=== PATIENT | male | born 1995 | race Two or more races ===

== ENCOUNTER 2019-11-23 09:59 | Emergency (ER) | payer OTHER ==
[~2019-11-23] VITALS: Ht 180.3 cm; Wt 131.2 kg
--- NOTE | 2019-11-23 10:45 | NUR ---
PT GIVEN SUPPLIES TO OBTAIN A STOOL SAMPLE
--- NOTE | 2019-11-23 10:46 | NUR ---
US AT BEDSIDE
[2019-11-23 11:26] LABS: BASOPHILS # (AUTO) 0.02 x10^3/uL (0-0.1); BASOPHILS % (AUTO) 0 % (0-1); EOSINOPHILS # (AUTO) 0.02 x10^3/uL (0-0.4); EOSINOPHILS % (AUTO) 0 % (1-7); LYMPHOCYTES # (AUTO) 2.11 x10^3/uL (1-3.4); LYMPHOCYTES % (AUTO) 19 % (22-44); MD NO; MEAN CORPUSCULAR HEMOGLOBIN 28.1 pg (27.5-34.5); MEAN CORPUSCULAR HGB CONC 33.6 g/dL (33.2-36.2); MEAN CORPUSCULAR VOLUME 83.6 fL (81-97); MEAN PLATELET VOLUME 7.6 fL (7.4-10.4); MONOCYTES # (AUTO) 0.82 x10^3/uL (0.2-0.8); MONOCYTES % (AUTO) 7 % (2-9); NEUTROPHILS % (AUTO) 74 % (42-75); PLATELET COUNT 349 x10^3/uL (130-400); RED BLOOD COUNT 5.45 x10^6/uL (4.38-5.82); RED CELL DISTRIBUTION WIDTH 12.3 % (9.4-14.8)
[2019-11-23] MEDS ORDERED: PANTOPRAZOLE 40 MG IV ONE (11:32)
[2019-11-23] MEDS ORDERED: KETOROLAC 30 MG/1 ML ONE (11:32)
[2019-11-23] MEDS ORDERED: ONDANSETRON 2MG/ML, 2ML ONE (11:32)
--- NOTE | 2019-11-23 11:52 | NUR ---
pt resting in [facility], iv established and pt medicated per nov. pt placed on monitor. call light within reach.
[2019-11-23] MEDS ORDERED: PANTOPRAZOLE 40 MG IV IVPush ONE (12:00)
[2019-11-23] MEDS ORDERED: SODIUM CHLORIDE 0.9% 1,000ML IVBOLUS ONE (12:00)
[2019-11-23] MEDS ORDERED: KETOROLAC 30 MG/1 ML IVPush ONE (12:00)
[2019-11-23] MEDS ORDERED: ONDANSETRON 2MG/ML, 2ML IVPush ONE (12:00)
[2019-11-23 12:13] LABS: ALBUMIN 3.6 g/dL (3.4-5.0); ANION GAP 9 mmol/L (5-15); CALCIUM 8.9 mg/dL (8.5-10.1); CHLORIDE 105 mmol/L (98-107)
[2019-11-23 12:17] LABS: ALANINE AMINOTRANSFERASE 40 U/L (12-78); ALKALINE PHOSPHATASE 77 U/L (45-117); BILIRUBIN,TOTAL 0.4 mg/dL (0.2-1.0); CREATININE 0.94 mg/dL (0.7-1.3); TOTAL PROTEIN 7.9 g/dL (6.4-8.2)
[2019-11-23 13:01] VITALS: BP 137/70
== END 2019-11-23 13:18 | disposition home or self-care (01) ==
LOC: ED 12:50
DX: R10.11 Right upper quadrant pain (principal); R11.2 Nausea with vomiting, unspecified; R10.13 Epigastric pain; R19.7 Diarrhea, unspecified
CPT/HCPCS: 36415; 76700; 80053; 83690; 85025; 96361; 96374; 96375; 99284; C9113; J1885; J2405; J7030

== ENCOUNTER 2020-04-10 08:53 | Emergency (ER) | payer OTHER ==
[~2020-04-10] VITALS: Ht 180.3 cm; Wt 142.4 kg
--- NOTE | 2020-04-10 09:56 | NUR ---
PT AMBULATORY TO ROOM AT THIS TIME.
--- NOTE | 2020-04-10 10:34 | NUR ---
PT STATES SON & WERE COVID TESTED ON FRIDAY; BOTH HAD FEVERS. PT C/O FEVER, COUGH SINCE SAT MORNING, "CAN'T SMELL ANYTHING", DIARRHEA (LAST BM: THIS AM). DENIES DYSPNEA, PAIN. LAST ORAL INTAKE: LAST NOC. TAKING TYLENOL - LAST DOSE LAST NOC. NO PRIOR COVID TESTING.
--- NOTE | 2020-04-10 11:50 | NUR ---
DR KING AT
[2020-04-10 12:12] VITALS: BP 139/71
== END 2020-04-10 12:24 | disposition home or self-care (01) ==
LOC: ED 10:05
DX: J06.9 Acute upper respiratory infection, unspecified (principal); R05 Cough; Z20.828 Contact with and (suspected) exposure to other viral communicable diseases
CPT/HCPCS: 36415; 71045; 87635; 99284